=== PATIENT | female | born 1990 | race Hispanic/Latino ===

== ENCOUNTER 2019-08-10 12:21 | Emergency (ER) | payer OTHER ==
[2019-08-10 13:08] VITALS: O2SAT 99
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
[2019-08-10] MEDS ORDERED: ACETAMINOPHEN-CAFF-BUTALBITAL 1 EA TAB PO ONE (14:47)
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
[2019-08-10 18:35] VITALS: BP 124/82; TEMP 98.5
== END 2019-08-10 16:50 | disposition home or self-care (01) ==
LOC: ER 12:21
DX: O41.8X10 Other specified disorders of amniotic fluid and membranes, first trimester, not applicable or unspecified (principal); O9A.211 Injury, poisoning and certain other consequences of external causes complicating pregnancy, first trimester; S20.212A Contusion of left front wall of thorax, initial encounter; S30.811A Abrasion of abdominal wall, initial encounter; O99.281 Endocrine, nutritional and metabolic diseases complicating pregnancy, first trimester; E07.9 Disorder of thyroid, unspecified; Z3A.10 10 weeks gestation of pregnancy; Z87.891 Personal history of nicotine dependence; V49.49XA Driver injured in collision with other motor vehicles in traffic accident, initial encounter; Y92.410 Unspecified street and highway as the place of occurrence of the external cause